=== PATIENT | female | born 1945 | race Caucasian/White ===

== ENCOUNTER → 2020-02-12 11:26 | Outpatient (CLI) | payer MEDICARE, BC, SELFPAY ==
--- NOTE | 2020-02-12 | DI.RAD.S_ITS ---
PROCEDURE: XR LUMBAR SPINE 2-3V INDICATIONS: LOW BACK AND LEFT LEG PAIN TECHNIQUE: 3 views of the lumbar spine were acquired. COMPARISON: None. FINDINGS: Bones: 5 [id number] vertebrae are present. There is prominent leftward scoliotic curvature it apex at L2. Multilevel moderate to severe disc space narrowing is present throughout the lumbar spine most severe at L5-S1. Severe foraminal narrowing is noted at L5-S1, [id number] at L2-3 and L4-5. No vertebral body compression fractures. No suspicious bony lesions. Bridging anterior osteophytes are present at L5-S1. Soft tissues: Overlying bowel gas pattern is normal. No suspicious soft tissue calcifications. IMPRESSION: Degenerative changes as above most notable at L5-S1. Leftward scoliotic curvature is present. Dictated by: Mindi Bell M.D. on 02/12/2020 at 16:19 Approved by: Mindi Bell M.D. on 02/12/2020 at 16:20
== END ==
PROVIDERS: Referring Provider Chiropractor; Visit Provider Chiropractor
DX: M54.5 Low back pain (principal); M79.605 Pain in left leg; M47.817 Spondylosis without myelopathy or radiculopathy, lumbosacral region
CPT/HCPCS: 72100

== ENCOUNTER 2020-06-29 13:28 | Observation (INO) | payer MEDICARE, BC, SELFPAY ==
[2020-06-29] VITALS (9 sets, daily range): BP systolic 118–193; BP diastolic 63–89; PULSE 61–85; RESP 16–25; TEMP 36.3–37.3; O2SAT 94–95; BMI 26.6
--- NOTE | 2020-06-29 13:41 | DI.RAD.S_ITS ---
PROCEDURE: XR CHEST 1V INDICATIONS: vomiting blood TECHNIQUE: One view of the chest was acquired. COMPARISON: None. FINDINGS: Overlying EKG wires. Surgical changes and devices: None. Lungs and pleura: Linear densities at the right greater than left lung bases. No focal consolidation, pneumothorax, or pleural effusion. Mediastinum: Mediastinal contours appear normal. Heart size is normal. Bones and chest wall: No suspicious bony lesions. Dextroscoliotic curvature of the lower thoracic spine. Overlying soft tissues appear unremarkable. IMPRESSION: Linear densities at the right greater than left lung bases favoring atelectasis/scarring. Developing consolidation versus sequela of aspiration not completely excluded. Dictated by: Hemant Garcia D.O. on 06/29/2020 at 13:21 Approved by: Hemant Garcia D.O. on 06/29/2020 at 13:27
--- NOTE | 2020-06-29 13:49 | ED.GIBLEED ---
HPI - GI Bleed General Chief complaint: GI Bleed Stated complaint: vomiting blood Time Seen by Provider: 06/29/20 13:41 Source: patient Mode of arrival: Ambulatory Limitations: no limitations History of Present Illness HPI Narrative: Patient is a 75-year-old female. Does have a history of reflux disease. Ten years ago had an upper endoscopy but nothing since then. She has had a colonoscopy approximately 5 years ago. She does take omeprazole on a daily basis however she stopped taking that over the past couple days because she was started on an antibiotic for an ear infection in the instructions stated that she should stop omeprazole because of this antibiotic. She has noticed over the past day or so that she has had ?severe heartburn ?she did take some Tums at home without any improvement. She has not noticed any change in her stool. No abdominal tenderness. No fevers. Last evening she did vomit some dark colored substance. Today after eating she vomited which she states was bright red blood and then food followed again by bright red blood. She does not take aspirin secondary to an allergy. She denies alcohol use. Does not take anti-inflammatories. Related Data Home Medications Medication Instructions Recorded Confirmed acetaminophen 500 mg tablet 500 mg PO Q4H PRN 03/20/19 06/24/20 carvedilol 3.125 mg tablet 3.125 mg PO BID 03/20/19 06/24/20 levothyroxine 75 mcg capsule 75 mcg PO DAILY 03/20/19 06/24/20 loratadine 10 mg tablet 10 mg PO DAILY 03/20/19 06/24/20 ranitidine HCl 150 mg capsule 150 mg PO BID 03/20/19 06/24/20 spironolactone 25 mg tablet 25 mg PO BID 03/20/19 06/24/20 Previous Rx's Medication Instructions Recorded clobetasol 0.05 % topical ointment 1 applictn TOP DAILY #1 tube 03/20/19 COMP estradiol vaginal cream See Rx Instructions .ROUTE 03/21/19 .COMPLEX #30 gram cefuroxime axetil 250 mg tablet 250 mg PO BID 10 Days #20 tab 06/24/20 [id number]-bplwttkha 3.5 4 drp OTIC (EAR) QID 7 Days #10 ml 06/24/20 mg/mL-10,000 unit/mL-1 % ear solution Allergies Allergy/AdvReac Type Severity Reaction Status Date / Time cefuroxime Allergy Severe Gastrointestinal Verified 06/29/20 15:07 Upset aspirin Allergy Face/Lips Verified 06/29/20 13:52 swell Penicillins AdvReac Intermediate Itching Verified 06/29/20 15:07 Review of Systems Constitutional Constitutional: Denies fever(s) and Denies headache(s) ENT Ears, Nose, Mouth, and Throat: Denies headache(s) Cardiovascular Cardiovascular: Denies chest pain and Denies dyspnea Respiratory Respiratory: Denies cough and Denies dyspnea Gastrointestinal Gastrointestinal: Denies abdominal pain, Denies melena, Denies hematochezia, Denies change in bowel habits, Reports coffee ground emesis, Reports nausea and Reports vomiting Genitourinary Genitourinary: Denies dysuria Genitourinary: Denies dysuria Musculoskeletal Musculoskeletal: Denies arthralgias and Denies myalgias Integumentary/Breasts Skin/Breast: Denies lesions and Denies rash Neurologic Neurologic: Denies behavioral changes and Denies headache(s) Psychiatric Psychiatric: Denies behavioral changes Hematologic/Lymphatic On Anticoagulants: No Allergic/Immunologic Allergic/Immunologic: Denies urticaria Patient History Medical History Chicken pox Chronic back pain Fractures (~2018) GERD (gastroesophageal reflux disease) Hypertension Hypothyroidism Measles Mumps Scoliosis Shoulder pain (~2018) Vertigo Social History Smoking Status: Former smoker Smoking Status: Former smoker Exam Initial Vital Signs Initial Vital Signs: Vital Signs Temperature 97.9 F 06/29/20 13:35 Pulse Rate 85 06/29/20 13:35 Respiratory Rate 22 06/29/20 13:35 Blood Pressure 193/89 H 06/29/20 13:35 Pulse Oximetry 94 06/29/20 13:35 Const General: cooperative, comfortable, well developed and well groomed Limitations: mental status not altered HENID Head: normal to inspection and normocephalic Resp Effort & Inspection: normal respiratory effort Auscultation: clear to auscultation bilaterally Cardio Rate: regular rate Rhythm: regular rhythm GI Inspection: non-distended Palpation: No firm and No tender Skin Lesions: no lesions Rashes: no rashes Neuro General: patient alert and patient awake Cognition: normal cognition Speech: speech normal Extrem General: normal to inspection and capillary refill normal Psych Appearance: grossly normal and well kempt Scores GCS Leisenring coma scale eye opening: Spontaneous Leisenring coma scale verbal response: Orientated Jarrett coma scale motor response: Obey commands Jarrett coma scale total score: 15 Course Orders Ordered: ED Orders 06/29/20 13:34 EKG-12 Lead Stat 06/29/20 13:41 XR chest 1V Stat 06/29/20 13:45 Complete Blood Count AUTO DIFF Stat Comprehensive Metabolic Panel Stat Partial Thromboplastin Time Stat Prothrombin Time INR Stat Type and Screen Stat 06/29/20 14:56 COVID19 Stat 06/29/20 14:57 Consult to General Surgery Stat Pantoprazole Sodium 80 mg/ (Sodium Chloride) 100 mls @ 10 mls/hr IV CONT ZOFIA Last Admin: 06/29/20 14:13 Dose: 8 mg/hr, 10 mls/hr Documented by: BTONER Discontinued Medications Pantoprazole Sodium (Pantoprazole 40 Mg Vial) 80 mg IV NOW ONE Stop: 06/29/20 13:50 Last Admin: 06/29/20 14:07 Dose: 80 mg Documented by: BTONER Vital Signs Vital signs: Vital Signs - 8 hr 06/29/20 13:35 Temperature 97.9 F Pulse Rate 85 Respiratory Rate 22 Blood Pressure 193/89 H Pulse Oximetry 94 MDM - GI Bleed Medical Records Attestation: I reviewed the patient's medical records. Lab Data Attestation: I reviewed the patient's lab results. Result diagrams: 06/29/20 13:45 06/29/20 13:45 Labs: Lab Results 06/29/20 06/29/20 06/29/20 Range/Units 13:45 13:45 13:45 WBC 9.0 (4.5-11.0) X10^3/uL RBC 4.68 (4.0-5.2) X10^6/uL Hgb 13.8 (12.0-16.0) g/dL Hct 41.5 (36-46) % MCV 88.7 (80-100) fL MCH 29.4 (26-34) PG MCHC 33.1 (30-36) % RDW 13.3 (11.6-14.8) % Plt Count 288 (150-400) X10^3/uL Neut % (Auto) 75.2 H (50-75) % Lymph % (Auto) 14.5 L (25-40) % [place] % (Auto) 7.3 (3-14) % Eos % (Auto) 2.1 (2-4) % Baso % (Auto) 0.9 (0-2) % Neut # (Auto) 6800 (7561-6295) /uL Lymph # (Auto) 1300 (3384-1310) /uL [place] # (Auto) 700 (0-900) /uL Eos # (Auto) 200 (0-450) /uL Baso # (Auto) 100 (0-100) /uL PT 12.6 (10.1-12.7) SECONDS INR 1.1 (0.9-1.3) APTT 34 (26.4-36.2) SECONDS Sodium 137 (137-145) mmol/L Potassium 4.4 (3.4-5.1) mmol/L Chloride 102 (98-107) mmol/L Carbon Dioxide 29 (22-32) mmol/L BUN 22 H (7-17) mg/dL Creatinine 1.12 H (0.52-1.04) mg/dL Estimated GFR 47.6 L (>60) mL/min BUN/Creatinine Ratio 19.6 (6-22) Glucose 111 H (80-110) mg/dL Calcium 10.4 H (8.4-10.2) mg/dL Total Bilirubin 0.3 (0.2-1.3) mg/dL AST 26 (14-36) IU/L ALT 19 (<35) IU/L Alkaline Phosphatase 91 (38-126) U/L Total Protein 7.5 (6.3-8.2) g/dL Albumin 4.3 (3.5-5.0) g/dL Globulin 3.2 (1.7-4.1) g/dL Albumin/Globulin Ratio 1.3 (1.0-2.8) Blood Type Antibody Screen 06/29/20 Range/Units 13:45 WBC (4.5-11.0) X10^3/uL RBC (4.0-5.2) X10^6/uL Hgb (12.0-16.0) g/dL Hct (36-46) % MCV (80-100) fL MCH (26-34) PG MCHC (30-36) % RDW (11.6-14.8) % Plt Count (150-400) X10^3/uL Neut % (Auto) (50-75) % Lymph % (Auto) (25-40) % [place] % (Auto) (3-14) % Eos % (Auto) (2-4) % Baso % (Auto) (0-2) % Neut # (Auto) (9348-2286) /uL Lymph # (Auto) (7671-8021) /uL [place] # (Auto) (0-900) /uL Eos # (Auto) (0-450) /uL Baso # (Auto) (0-100) /uL PT (10.1-12.7) SECONDS INR (0.9-1.3) APTT (26.4-36.2) SECONDS Sodium (137-145) mmol/L Potassium (3.4-5.1) mmol/L Chloride (98-107) mmol/L Carbon Dioxide (22-32) mmol/L BUN (7-17) mg/dL Creatinine (0.52-1.04) mg/dL Estimated GFR (>60) mL/min BUN/Creatinine Ratio (6-22) Glucose (80-110) mg/dL Calcium (8.4-10.2) mg/dL Total Bilirubin (0.2-1.3) mg/dL AST (14-36) IU/L ALT (<35) IU/L Alkaline Phosphatase (38-126) U/L Total Protein (6.3-8.2) g/dL Albumin (3.5-5.0) g/dL Globulin (1.7-4.1) g/dL Albumin/Globulin Ratio (1.0-2.8) Blood Type O Positive Antibody Screen Negative Urine Dip Bedside Urine Glucose Negative Bedside Urine Bilirubin - Negative Bedside Urine Ketone - Negative Urine Specific [place] 1.015 Bedside Urine Occult Blood - Negative Bedside Urine pH 7.5 Bedside Urine Protein - Negative Bedside Urine Urobilinogen - Negative Bedside Urine Nitrite - Negative Bedside Urine Leukocytes - Negative Esterase Imaging Data Chest x-ray: Radiologist's Impression: [address] [id number] ReportSigned Patient: Clarice Yo PMR#: [id number]: 6Acct:[id number]/Sex: 75 / FDate of Service: 06/29/20Loc: EDAccession Number: [id number] Procedure: XR chest 1V Ordering Provider: Walter Xie D.O. PROCEDURE: XR CHEST 1V INDICATIONS: vomiting blood TECHNIQUE: One view of the chest was acquired. COMPARISON: None. FINDINGS: Overlying EKG wires. Surgical changes and devices: None. Lungs and pleura: Linear densities at the right greater than left lung bases. No focal consolidation, pneumothorax, or pleural effusion. Mediastinum: Mediastinal contours appear normal. Heart size is normal. Bones and chest wall: No suspicious bony lesions. Dextroscoliotic curvature of the lower thoracic spine. Overlying soft tissues appear unremarkable. IMPRESSION: Linear densities at the right greater than left lung bases favoring atelectasis/scarring. Developing consolidation versus sequela of aspiration not completely excluded. Dictated by: Hemant Garcia D.O. on 06/29/2020 at 13:21 Approved by: Hemant Garcia D.O. on 06/29/2020 at 13:27 MDM Narrative Medical decision making narrative: Patient is stable. Not hypotensive. Slightly tachypneic and not tachycardic. H&H is unremarkable. Does not have an elevated white count. Does have an elevated BUN. This does give her a score of 2 on the Leisenring-Blatchford bleeding score which makes her ?high risk? unlikely to require medical intervention. Discussed the case with Dr. Bah with General surgery who requests the patient be admitted to the medicine service and that he would scope her tomorrow. I did discuss the case with Dr. Galarza with Internal Medicine who will admit for further evaluation and treatment. Discussed the admission with the patient. She expressed understanding and agreement. Discharge Plan Departure Patient Disposition: Admitted As Inpatient Clinical Impression: Acute upper GI bleed, Hypertension Admit Date/Time: 06/29/20 15:01 Admit Provider: Marianne Galarza
[2020-06-29 13:57] LABS: Add Manual Diff / Slide Review NO; Basophils Absolute Auto 100 /uL (0-100); Basophils Percent Auto 0.9 % (0-2); Eosinophils Absolute Auto 200 /uL (0-450); Eosinophils Percent Auto 2.1 % (2-4); Hematocrit 41.5 % (36-46); Hemoglobin 13.8 g/dL (12.0-16.0); Lymphocytes Absolute Auto 1300 /uL (1100-4500); Lymphocytes Percent Auto 14.5 % (25-40); Mean Corpuscular HGB Conc 33.1 % (30-36); Mean Corpuscular Hemoglobin 29.4 PG (26-34); Mean Corpuscular Volume 88.7 fL (80-100); Monocytes Absolute Auto 700 /uL (0-900); Monocytes Percent Auto 7.3 % (3-14); Neutrophils Absolute Auto 6800 /uL (1500-7000); Neutrophils Percent Auto 75.2 % (50-75); Platelet Count 288 X10^3/uL (150-400); Red Blood Cell Count 4.68 X10^6/uL (4.0-5.2); Red Cell Distribution Width 13.3 % (11.6-14.8)
[2020-06-29 14:04] LABS: INR 1.1 (0.9-1.3); Prothrombin Time 12.6 SECONDS (10.1-12.7)
[2020-06-29 14:07] LABS: PTT Partial Thromboplastin Tim 34 SECONDS (26.4-36.2)
[2020-06-29] MEDS: PANTOPRAZOLE 40 MG VIAL 80 MG IV (14:07)
[2020-06-29 14:08] LABS: Alanine Aminotransferase 19 IU/L (<35); Albumin 4.3 g/dL (3.5-5.0); Albumin Globulin Ratio 1.3 (1.0-2.8); Alkaline Phosphatase 91 U/L (38-126); Aspartate Aminotransferase 26 IU/L (14-36); BUN Creatinine Ratio 19.6 (6-22); Bilirubin Total 0.3 mg/dL (0.2-1.3); Blood Urea Nitrogen 22 mg/dL (7-17); Calcium 10.4 mg/dL (8.4-10.2); Carbon Dioxide 29 mmol/L (22-32); Chloride 102 mmol/L (98-107); Estimated Glomerular Filt Rate 47.6 mL/min (>60); Globulin 3.2 g/dL (1.7-4.1); Glucose 111 mg/dL (80-110); HEMOLYSIS < 15 (0-50); Potassium 4.4 mmol/L (3.4-5.1); Sodium 137 mmol/L (137-145); Total Protein 7.5 g/dL (6.3-8.2)
[2020-06-29] MEDS: PANTOPRAZOLE 80 MG in SODIUM CHLORIDE 0.9% 100 ML 10 ML IV (14:13)
--- NOTE | 2020-06-29 15:13 | PC.NURSE ---
Dr Bah at bedside for consultation
--- NOTE | 2020-06-29 15:21 | P.CONS_ITS ---
History of Present Illness Consult details Date Patient Seen: 06/29/20 Time Patient Seen: 15:21 Chief complaint: vomiting blood Reason for consult: Hematemesis Requesting provider: Walter Xie Narrative: [facility] 75[facility]. She has eczema urinary ear and scratched it and developed an infection. She was placed on cefuroxime and antibiotic drops for her here. The package insert recommended that she stop her reflux medication, which she did. Unfortunately she yesterday she developed nausea with vomiting and initially vomited coffee-ground material. This morning there was also bright red blood and she came to the emergency room and is being admitted for evaluation. She just had some queasy sick feeling in her abdomen, mostly her upper abdomen since this began. She last ate this morning. She has never had anything like this before. She has had no prior abdominal operations. She has had an EGD about 10 years ago related to reflux. She has been on acid suppression medication for a prolonged period. She is not on any anticoagulated and does not take nonsteroidal anti-inflammatory agents as she is quite allergic to aspirin. No family history of GI tract malignancy. No black or bloody bowel movements. Meds Home Medications and Allergies Home Medications Medication Instructions Recorded Confirmed Type acetaminophen 500 mg tablet 1,000 mg PO PRN PRN MDD 4000 03/20/19 06/29/20 History carvedilol 3.125 mg tablet 3.125 mg PO BID 03/20/19 06/29/20 History clobetasol 0.05 % topical ointment 1 applictn TOP DAILY #1 tube 03/20/19 06/24/20 Rx levothyroxine 75 mcg capsule 75 mcg PO DAILY 03/20/19 06/29/20 History loratadine 10 mg tablet 10 mg PO DAILY 03/20/19 06/29/20 History ranitidine HCl 150 mg capsule 150 mg PO BID 03/20/19 06/24/20 History spironolactone 25 mg tablet 25 mg PO BID 03/20/19 06/29/20 History COMP estradiol vaginal cream See Rx Instructions .ROUTE 03/21/19 06/24/20 Rx .COMPLEX #30 gram cefuroxime axetil 250 mg tablet 250 mg PO BID 10 Days #20 tab 06/24/20 06/29/20 Rx [id number] 3.5 4 drp OTIC (EAR) QID 7 Days #10 ml 06/24/20 06/24/20 Rx mg/mL-10,000 unit/mL-1 % ear solution Allergies Allergy/AdvReac Type Severity Reaction Status Date / Time cefuroxime Allergy Severe Gastrointestinal Verified 06/29/20 15:07 Upset aspirin Allergy Face/Lips Verified 06/29/20 13:52 swell Penicillins AdvReac Intermediate Itching Verified 06/29/20 15:07 Review of Systems Review of Systems Narrative: Patient wears glasses. No other visual difficulties like double vision. No pain arise hearing difficulties, sore throat, tooth aches, swallowing difficulties. No cough cold or asthma. No history of COVID infection. No chest pain or heart problems though she does have hypertension. No black or bloody bowel movements. Last colonoscopy about 5 years ago. She thinks she may have had a tiny polyp removed sometime in the past. No dysuria or hematuria. No unusual bruising or bleeding. No anxiety or depression. She is hypothyroid on medication. She is not diabetic. No seizures or blackouts. She is up-to-date on her mammograms and has not had a breast biopsy. No breast discharge. Exam Vital Signs (past 8 hours): - 06/29/20 13:35 Temperature 97.9 F Pulse Rate 85 Respiratory Rate 22 Blood Pressure 193/89 H Pulse Oximetry 94 Oxygen Delivery Method Room Air Narrative Exam Narrative: Cooperative in no apparent distress. Eyes are nonicteric. Neck is supple. There are no nodes in the neck or supraclavicular areas. Trachea is midline mobile. I do not feel any thyroid enlargement. There is no bruit in the neck. Lungs are clear to auscultation without rales or rhonchi. Heart regular rate and rhythm without murmur gallop. Abdomen is protuberant soft. No scars or hernias noted. Liver and spleen are not palpably enlarged. Visible skin is without ulceration or lesion. She has 2+ dorsalis pedis pulses. Patient is alert and oriented x3. Speech rate and content are appropriate. Affect is appropriate. Objective Labs Result Diagrams: 06/29/20 13:45 06/29/20 13:45 Labs: Laboratory Results - last 24 hr 06/29/20 06/29/20 06/29/20 13:45 13:45 13:45 WBC 9.0 RBC 4.68 Hgb 13.8 Hct 41.5 MCV 88.7 MCH 29.4 MCHC 33.1 RDW 13.3 Plt Count 288 Neut % (Auto) 75.2 H Lymph % (Auto) 14.5 L [place] % (Auto) 7.3 Eos % (Auto) 2.1 Baso % (Auto) 0.9 Neut # (Auto) 6800 Lymph # (Auto) 1300 [place] # (Auto) 700 Eos # (Auto) 200 Baso # (Auto) 100 PT 12.6 INR 1.1 APTT 34 Sodium 137 Potassium 4.4 Chloride 102 Carbon Dioxide 29 BUN 22 H Creatinine 1.12 H Estimated GFR 47.6 L BUN/Creatinine Ratio 19.6 Glucose 111 H Calcium 10.4 H Total Bilirubin 0.3 AST 26 ALT 19 Alkaline Phosphatase 91 Total Protein 7.5 Albumin 4.3 Globulin 3.2 Albumin/Globulin Ratio 1.3 Blood Type Antibody Screen 06/29/20 13:45 WBC RBC Hgb Hct MCV MCH MCHC RDW Plt Count Neut % (Auto) Lymph % (Auto) [place] % (Auto) Eos % (Auto) Baso % (Auto) Neut # (Auto) Lymph # (Auto) [place] # (Auto) Eos # (Auto) Baso # (Auto) PT INR APTT Sodium Potassium Chloride Carbon Dioxide BUN Creatinine Estimated GFR BUN/Creatinine Ratio Glucose Calcium Total Bilirubin AST ALT Alkaline Phosphatase Total Protein Albumin Globulin Albumin/Globulin Ratio Blood Type O Positive Antibody Screen Negative Assessment & Plan Assessment & Plan narrative: Patient with chronic reflux disease, hypertension, ear eczema, hypothyroidism,(all conditions chronic and medically treated) who developed coffee-ground emesis yesterday with some bright red blood emesis today. Patient ate today and I would like to wait therefore till tomorrow to do an EGD. I have discussed the procedure and the potential for general anesthesia verses sedation. Risks of bleeding, aspiration and perforation discussed with her. Her was present. All questions were answered. They wished to proceed. In the interim we will follow her crit its intransit fuse as appropriate. 35 minutes was spent reviewing her information and performing a history and physical. An additional 10 minutes was used to document.
[2020-06-29 15:36] LABS: COVID19 -Nasal RAPID Negative (Negative)
--- NOTE | 2020-06-29 16:36 | P.HP_ITS ---
History of Present Illness History of Present Illness Date Patient Seen: 06/29/20 Time Patient Seen: 16:00 Date of Onset of Symptoms: 06/29/20 Chief complaint: vomiting blood Narrative: She is a 75-year-old female with past medical history of gastroesophageal reflux disease, hypertension, hypothyroidism presenting with acute onset hematochezia. On June 25 she presented to urgent care for left ear pain and was given cefuroxime for presumed otitis media. She read online that she was to stop taking her omeprazole while taking cefuroxime and therefore stopped. This a.m. 0300 she woke up and started vomiting black coffee-ground emesis. This persisted for several hours until she began vomiting bright red blood at 12:00 p.m.. She denies that this has ever happened before. She says that she has been on ranitidine for years and recently switched to omeprazole which she takes daily for chronic reflux. She says that she frequently has reflux into her throat and feels nauseated. In the ED she complains of pain in her throat. She denies chest pain, palpitations, shortness of breath, diarrhea, indigestion, melena. Endorses cough, hematochezia, nausea. Pantoprazole 80 mg IV started in ED. CXR performed on admission shows linear densities in lung bases suggestive of atelectasis vs scarring though unable to exclude consolidation 2/[address] Bah from surgery met with the patient in the ED and plans to scope tomorrow. She moved to [place] 3 years ago from [place] for a business opportunity with her . She does not currently have a PCP in the area, and says that she goes to [place] yearly and has a doctor's appointment who refilled her medications at the times. Patient History Medical History Chicken pox Chronic back pain Fractures (~2018) GERD (gastroesophageal reflux disease) Hypertension Hypothyroidism Measles Mumps Scoliosis Shoulder pain (~2018) Vertigo Family & Social History Family History (Updated 06/29/20 @ 16:44 by Marianne Galarza MD) Father Cancer Brother Cancer Sister Cancer Tobacco & Substance use: Smoking Status Former smoker Meds Home Medications and Allergies Home Medications Medication Instructions Recorded Confirmed Type acetaminophen 500 mg tablet 1,000 mg PO PRN PRN MDD 4000 03/20/19 06/29/20 History carvedilol 3.125 mg tablet 3.125 mg PO BID 03/20/19 06/29/20 History clobetasol 0.05 % topical ointment 1 applictn TOP DAILY #1 tube 03/20/19 06/29/20 Rx levothyroxine 75 mcg capsule 75 mcg PO DAILY 03/20/19 06/29/20 History loratadine 10 mg tablet 10 mg PO DAILY 03/20/19 06/29/20 History spironolactone 25 mg tablet 25 mg PO BID 03/20/19 06/29/20 History COMP estradiol vaginal cream See Rx Instructions .ROUTE 03/21/19 06/29/20 Rx .COMPLEX #30 gram cefuroxime axetil 250 mg tablet 250 mg PO BID 10 Days #20 tab 06/24/20 06/29/20 Rx tczcjxen-tjlxetcre-nuabpeyfr 3.5 4 drp OTIC (EAR) QID 7 Days #10 ml 06/24/20 06/29/20 Rx mg/mL-10,000 unit/mL-1 % ear solution magnesium salicylate [Jonathan's mg 06/29/20 History Regular] omeprazole PO 06/29/20 History Allergies Allergy/AdvReac Type Severity Reaction Status Date / Time aspirin Allergy Face/Lips Verified 06/29/20 13:52 swell cefuroxime AdvReac Severe Gastrointestinal Verified 06/29/20 15:56 Upset Penicillins AdvReac Intermediate Itching Verified 06/29/20 15:07 Review of Systems Constitutional Constitutional: Reports as per HPI ENT Ears, Nose, Mouth, and Throat: Yes as per HPI, No dysphagia, Yes ear discharge (L ear white drainage. ), Yes otalgia (L ear ), No odynophagia, No throat swelling and No tongue swelling Cardiovascular Cardiovascular: Reports as per HPI Respiratory Respiratory: Reports as per HPI Gastrointestinal Gastrointestinal: Reports as per HPI, Denies abdominal pain, Denies belching, Denies melena, Denies hematochezia, Denies change in bowel habits, Reports coffee ground emesis, Denies constipation, Denies cramping, Denies dysphagia, Denies excessive flatus, Denies odynophagia, Reports vomiting and Reports hematemesis Musculoskeletal Musculoskeletal: Reports as per HPI and Reports system reviewed and no additional complaints, except as documented Integumentary/Breasts Skin/Breast: Reports system reviewed and no additional complaints, except as doc umented Neurologic Neurologic: Reports system reviewed and no additional complaints, except as documented Psychiatric Psychiatric: Reports system reviewed and no additional complaints, except as documented Endocrine Endocrine: Reports system reviewed and no additional complaints, except as documented Hematologic/Lymphatic Hematologic/Lymphatic: Reports system reviewed and no additional complaints, except as documented Allergic/Immunologic Allergic/Immunologic: Reports system reviewed and no additional complaints, except as documented, Denies throat swelling and Denies tongue swelling Exam Vital Signs (past 8 hours): - 06/29/20 13:35 06/29/20 15:32 06/29/20 16:00 Temperature 97.9 F Pulse Rate 85 66 63 Respiratory Rate 22 22 25 H Blood Pressure 193/89 H 170/76 H Pulse Oximetry 94 94 94 06/29/20 16:01 06/29/20 16:30 Temperature Pulse Rate 63 64 Respiratory Rate 18 18 Blood Pressure 144/63 H Pulse Oximetry 94 95 Oxygen Delivery Method Room Air Const General: cooperative, healthy appearing, comfortable and well groomed Nutritional Appearance: well nourished and obese Orientation: alert, awake, oriented x3, oriented to person, oriented to place and oriented to time HENNC Head: normal to inspection, normocephalic and atraumatic Ears: external ears normal, TM normal on the right and TM abnormal (White discharge in L ear canal, difficult to visualize TM) Throat: posterior oropharynx normal, tonsils normal and uvula midline Neck Neck: normal visual inspection, full ROM and no meningeal signs Chest Chest: normal inspection of the chest Resp Effort & Inspection: normal respiratory effort Auscultation: clear to auscultation bilaterally Cardio Rate: regular rate Rhythm: regular rhythm Heart Sounds: S1 normal and S2 normal GI Inspection: normal to inspection, no abdominal wall ecchymosis and no edema Palpation: soft Auscultation: normal bowel sounds Psych Appearance: grossly normal and well kempt Affect: normal affect Attitude: cooperative Thought Process: normal Objective Labs Result Diagrams: 06/29/20 18:00 06/29/20 13:45 Labs: Laboratory Results - last 24 hr 06/29/20 06/29/20 06/29/20 13:45 13:45 13:45 WBC 9.0 RBC 4.68 Hgb 13.8 Hct 41.5 MCV 88.7 MCH 29.4 MCHC 33.1 RDW 13.3 Plt Count 288 Neut % (Auto) 75.2 H Lymph % (Auto) 14.5 L Wharton % (Auto) 7.3 Eos % (Auto) 2.1 Baso % (Auto) 0.9 Neut # (Auto) 6800 Lymph # (Auto) 1300 Wharton # (Auto) 700 Eos # (Auto) 200 Baso # (Auto) 100 PT 12.6 INR 1.1 APTT 34 Sodium 137 Potassium 4.4 Chloride 102 Carbon Dioxide 29 BUN 22 H Creatinine 1.12 H Estimated GFR 47.6 L BUN/Creatinine Ratio 19.6 Glucose 111 H Calcium 10.4 H Total Bilirubin 0.3 AST 26 ALT 19 Alkaline Phosphatase 91 Total Protein 7.5 Albumin 4.3 Globulin 3.2 Albumin/Globulin Ratio 1.3 SARS-CoV-2 (PCR) Blood Type Antibody Screen 06/29/20 06/29/20 13:45 15:10 WBC RBC Hgb Hct MCV MCH MCHC RDW Plt Count Neut % (Auto) Lymph % (Auto) Wharton % (Auto) Eos % (Auto) Baso % (Auto) Neut # (Auto) Lymph # (Auto) Wharton # (Auto) Eos # (Auto) Baso # (Auto) PT INR APTT Sodium Potassium Chloride Carbon Dioxide BUN Creatinine Estimated GFR BUN/Creatinine Ratio Glucose Calcium Total Bilirubin AST ALT Alkaline Phosphatase Total Protein Albumin Globulin Albumin/Globulin Ratio SARS-CoV-2 (PCR) Negative Blood Type O Positive Antibody Screen Negative Assessment & Plan Assessment & Plan narrative: Clarice Yo is a 75-year-old female with past medical history of gastroesophageal reflux disease, hypertension, hypothyroidism presenting with acute onset hematochezia. 1. Acute upper GI bleed, present on admission, active. - Patient has had multiple episodes of hematochezia this AM. - H/H (13.4/40.7) remain normal despite blood loss. - Patient denies taking Aspirin or NSAIDS. - Surgery consulted in ED. Dr. Bah met with patient in ED and will perform EGD tomorrow morning. - NPO at midnight except for medications. - Frequent CBC/BMP. - Patient started on telemetry. -Continue Pantoprazole 40mg BID, IV. 2. Bilateral pulmonary infiltrates, present on admission, active. - CXR performed on admission showed linear densities in the right greater than left lung base suggestive of atelectasis versus scarring. However consolidation from aspiration could not be excluded. -patient is afebrile, has a WBC of 9.0, no left shift, and normal pulmonary physical exam. -This is unlikely to be acute in nature, but will monitor 3. Acute kidney injury, present on admission, active. - Creatinine 1.12 on admission, no baseline available. - PEARL likely secondary to prerenal azotemia - Continue IVF NS 0.9% @ 100ml/hr. 4. Otitis media of L ear, present on admission, active. -patient was seen by urgent care on June 25 for L unilateral ear pain. Per urgent care note, she has eczema with otitis externa from chronic irritation from use of Q-tips and findings suggestive of acute otitis media. Patient was given cefuroxime 250 mg p.o. b.i.d. for 10 days since she is allergic to penicillin. -patient presents today with continued findings of white drainage (likely topical hydrocortisone residue) from her left ear, and erythematous TM. 5. Gastroesophageal reflux disease, present on admission, chronic. -patient on chronic proton pump inhibitor therapy for chronic reflux esophagitis. -Protonix 80 mg IV ordered in ED, will continue Protonix 40 mg IV b.i.d. 6.Hypothyroidism, present on admission, chronic. - Patient managed with Levothyroxine 75mcg po QD. 7. Essential hypertension, present on admission, chronic. - History of essential hypertension, managed with carvedilol 3.125 po BID, spironolactone 25mg po BID.
[2020-06-29] MEDS: SODIUM CHLORIDE 0.9% 1,000 ML 100 ML IV (16:57)
[2020-06-29] MEDS: NEOMY/POLYM B/HC OTIC 10 ML 4 DROPS EAR-BOTH ×2 (16:59→20:25)
[2020-06-29 18:11] LABS: Add Manual Diff / Slide Review NO; Basophils Absolute Auto 100 /uL (0-100); Basophils Percent Auto 1.1 % (0-2); Eosinophils Absolute Auto 200 /uL (0-450); Eosinophils Percent Auto 2.5 % (2-4); Hematocrit 40.7 % (36-46); Hemoglobin 13.4 g/dL (12.0-16.0); Lymphocytes Absolute Auto 1700 /uL (1100-4500); Lymphocytes Percent Auto 20.7 % (25-40); Mean Corpuscular Hemoglobin 29.3 PG (26-34); Monocytes Absolute Auto 500 /uL (0-900); Monocytes Percent Auto 6.5 % (3-14); Neutrophils Absolute Auto 5700 /uL (1500-7000); Neutrophils Percent Auto 69.2 % (50-75); Platelet Count 251 X10^3/uL (150-400); Red Blood Cell Count 4.57 X10^6/uL (4.0-5.2); Red Cell Distribution Width 13.4 % (11.6-14.8); White Blood Cell Count 8.3 X10^3/uL (4.5-11.0)
[2020-06-29] MEDS: cefUROXime 250 MG TABLET PO (20:25)
[2020-06-29] MEDS: PANTOPRAZOLE 40 MG VIAL IV (20:25)
[2020-06-29] MEDS: carvediloL 3.125 MG TABLET PO (20:25)
[2020-06-29] MEDS: SPIRONOLACTONE 25 MG TABLET PO (20:25)
--- NOTE | 2020-06-29 22:28 | PC.NURSE ---
Admission note: Patient arrived on via wheelchair accompanied by ED MANAGER CLINICAL APPLICATIONS @ 2371, transferred herself to inpatient bed and ambulated to bathroom without difficulty. No hx of falls or assistive devices at baseline. Hx of long standing reflux and reports that her episodes of emesis are just after feelings of heartburn and not specifically nausea. Has not had either since admission to the floor. All fall risk and safety education given, call light in reach, calls appropriately. AxOx3, can make needs known.
[2020-06-30] VITALS (11 sets, daily range): BP systolic 131–153; BP diastolic 57–96; PULSE 59–70; RESP 11–16; TEMP 35.9–36.6; O2SAT 91–97; BMI 26.6
--- NOTE | 2020-06-30 | PATH_ITS ---
[facility] Accession Number: [id number] . 01 Material submitted: . esophagus - ESOPHAGEAL ULCER . 01 Clinical history: . VOMITING BLOOD . 02 Diagnosis: Esophageal Ulcer, Biopsy: Scant reactive squames with fibrinopurulent debris. Negative for fungal organisms by PAS stain. Negative for viral cytopathic effect. Negive for dysplasia or malignancy, however, no well-preserved, intact tissue is present for evaluation. MRV 07/04/2020 1543 Local . 02 Electronically signed: . Kristy Ballesteros MD, Pathologist NPI- [id number] . 01 Gross description: . ESOPHAGEAL ULCER: Received in formalin is 1 fragment(s) of zhong, soft tissue measuring 0.1 x 0.1 x 0.1 cm submitted entirely in 1 cassette(s) /FAIZAN 07/01/2020 1908 Local . 02 Microscopic: . A PAS stain is performed to evaluate for fungal organisms and is negative for fungal organisms. The control stain showed appropriate reactivity. . 02 Pathologist provided ICD-10: K92.0 . 02 CPT . 082861, 606153 Performed at: 01 [facility] [address], [place], [place] [id number] MD Elias Martinez MD Phone: [phone] Performed at: 02 [facility] [address] [place], [place] [id number] MD Manuela Ceja MD Phone: [phone]
[2020-06-30] MEDS: SODIUM CHLORIDE 0.9% 1,000 ML 100 ML IV (02:47)
[2020-06-30] MEDS: LEVOTHYROXINE 75 MCG TABLET PO (05:09)
[2020-06-30 06:08] LABS: Add Manual Diff / Slide Review NO; Basophils Absolute Auto 100 /uL (0-100); Eosinophils Absolute Auto 300 /uL (0-450); Eosinophils Percent Auto 4.7 % (2-4); Lymphocytes Absolute Auto 2000 /uL (1100-4500); Lymphocytes Percent Auto 33.5 % (25-40); Mean Corpuscular HGB Conc 33.3 % (30-36); Mean Corpuscular Hemoglobin 29.7 PG (26-34); Mean Corpuscular Volume 89.2 fL (80-100); Monocytes Absolute Auto 600 /uL (0-900); Monocytes Percent Auto 10.4 % (3-14); Neutrophils Absolute Auto 3100 /uL (1500-7000); Neutrophils Percent Auto 50.4 % (50-75); Platelet Count 227 X10^3/uL (150-400); Red Blood Cell Count 4.04 X10^6/uL (4.0-5.2); Red Cell Distribution Width 13.2 % (11.6-14.8); White Blood Cell Count 6.1 X10^3/uL (4.5-11.0)
[2020-06-30 06:19] LABS: Alanine Aminotransferase 14 IU/L (<35); Albumin 3.3 g/dL (3.5-5.0); Albumin Globulin Ratio 1.2 (1.0-2.8); Alkaline Phosphatase 65 U/L (38-126); Aspartate Aminotransferase 19 IU/L (14-36); BUN Creatinine Ratio 15.6 (6-22); Bilirubin Total 0.2 mg/dL (0.2-1.3); Blood Urea Nitrogen 15 mg/dL (7-17); Calcium 8.8 mg/dL (8.4-10.2); Carbon Dioxide 31 mmol/L (22-32); Chloride 106 mmol/L (98-107); Estimated Glomerular Filt Rate 56.8 mL/min (>60); Globulin 2.7 g/dL (1.7-4.1); Glucose 91 mg/dL (80-110); HEMOLYSIS < 15 (0-50); Potassium 4.1 mmol/L (3.4-5.1); Sodium 137 mmol/L (137-145)
--- NOTE | 2020-06-30 08:17 | PC.NURSE ---
Addendum entered by Yolanda Soriano R.N. 06/30/20 11:40: Patient back from EGD, alert, oriented, VSS, denies pain and nausea. Taking clear liquids. Original Note: Patient, alert, oriented denies pain and nausea. Ambulating indep in room. Remains NPO.
--- NOTE | 2020-06-30 09:03 | CM.DANOTE ---
Addendum entered by Laura Ronquillo R.N. 06/30/20 13:01: Met with patient in her room. Introduced self and role. She was laying in bed, awake. He had some nausea. Confirmed with patient that they have an RV here at [place], they leave it here, and drive back to [place]. 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 She stated that they have a home in [place] with [place] acres, and a son that lives near by. She is independent, drives. Plan is to drive back to [place] potentially next week. Will continue to follow. Original Note: DCP: Case received, EMR reviewed. , Bharat, was in the room, patient currently having a procedure. Introduced self and role. Was able to obtain some information regarding patient's baseline activity status prior to hospitalization, as well as current living situation. DCP assessment completed with information currently available. Patient is a 75 year old female who admitted yesterday morning to the care of the hospitalist team. PCP: Unknown, has a provider in [place]. Payer: confirmed: Medicare/BCBS Out of [facility]. Patient came to the hospital via private vehicle secondary to having emesis, coffee ground. Patient holds current diagnosis of acute GI Bleed. She is currently having a EGD procedure. Patient has history of acid reflux. Met with patient's in the room. Confirmed that she is independent at baseline, they live in [place], but come here to visit as well. They stay in their RV, stated, rent is too expensive. They are supposed to go back to [place] next week, for patient has an appointment to see her primary care provider, she has none in this area. P: DCP to continue to be available for any needs. Patient should be able to go home when she is medically stable. Laura Ronquillo RN/Organic Gardening Teacher
[2020-06-30] MEDS: LACTATED RINGERS 1,000 ML 42 ML IV ×2 (09:09→11:56)
--- NOTE | 2020-06-30 09:42 | PM.PREOP ---
Pre-operative Note COVID-19 COVID-19 status: Negative Result date/Date tested (Pos, Neg/Pending): 06/29/20 Interval Note History & Physical reviewed/Exam performed by Physician: Yes Changes to H&P: No
--- NOTE | 2020-06-30 10:19 | PM.OP.ENDO ---
Operative Date/Time/Diagnoses Date of procedure: 06/30/20 Time of procedure: 10:20 Pre-op diagnosis: Upper GI bleed Post-op diagnosis: same (Significant distal esophagitis with ulceration. Acute.) Procedure & Clinicians Study performed: EGD with biopsy Same procedure as scheduled: Yes Indications: Determine cause of upper GI bleed/hematemesis Surgeon: Lucas Bah Procedure Notes SCOAP/Timeout: Performed Procedure in detail: Patient is placed supine on her bed. She underwent general endotracheal anesthesia to protect her airway. Scope was inserted and advanced into the esophagus. The esophagus was normal to lay reach the distal 3 or 4 cm. There was obvious ulceration in this area inflammation. Scope was inserted beyond into the stomach which insufflated well. The patient had no blood in her upper tract. The pyloric channel was narrowed but not inflamed. The duodenum was normal to the 4th part. The scope was brought back into the stomach and retroflexed. The patient was noted to have a very small hiatal hernia. The scope was removed into the distal esophagus. I took 1 biopsy and pulled off but appeared to be an area of fibrinous exudate with minor bleeding. I chose not to biopsy any further and remove the scope. Patient tolerated the procedure well. Scope withdrawal time: Not applicable Sedation minutes: 0 (Done under general anesthesia to protect her airway should blood be in her stomach.) Findings: other findings (Acute esophageal ulceration with inflammation.) Specimen(s): other (Esophageal biopsy) Complications: none Post-procedure Plan for aftercare: Proton pump inhibitor Disposition: PACU
[2020-06-30] MEDS: NEOMY/POLYM B/HC OTIC 10 ML 4 DROPS EAR-BOTH ×2 (11:08→14:54)
[2020-06-30] MEDS: carvediloL 3.125 MG TABLET PO (11:08)
[2020-06-30] MEDS: cefUROXime 250 MG TABLET PO (11:08)
[2020-06-30] MEDS: PANTOPRAZOLE 40 MG VIAL IV (11:08)
[2020-06-30] MEDS: LORATADINE 10 MG TABLET PO (11:08)
[2020-06-30] MEDS: SPIRONOLACTONE 25 MG TABLET PO (11:08)
[2020-06-30] MEDS: SODIUM CHLORIDE 0.9% FLUSH 10 ML IV (11:09)
[2020-06-30] MEDS: ONDANSETRON 4 MG/2 ML INJ IV (11:55)
[2020-06-30] MEDS: ACETAMINOPHEN 325 MG TABLET 650 MG PO (11:55)
[2020-06-30 14:03] LABS: Hematocrit 41.3 % (36-46); Hemoglobin 13.3 g/dL (12.0-16.0)
--- NOTE | 2020-06-30 14:45 | P.DS_ITS ---
History of Present Illness History of Present Illness Date Patient Seen: 06/30/20 Time Patient Seen: 14:45 Chief complaint: vomiting blood Narrative: Per Dr. Galarza, She is a 75-year-old female with past medical history of gastroesophageal reflux disease, hypertension, hypothyroidism presenting with acute onset hematochezia. On June 25 she presented to urgent care for left ear pain and was given cefuroxime for presumed otitis media. She read online that she was to stop taking her omeprazole while taking cefuroxime and therefore stopped. This a.m. 0300 she woke up and started vomiting black coffee-ground emesis. This pers isted for several hours until she began vomiting bright red blood at 12:00 p.m.. She denies that this has ever happened before. She says that she has been on ranitidine for years and recently switched to omeprazole which she takes daily for chronic reflux. She says that she frequently has reflux into her throat and feels nauseated. In the ED she complains of pain in her throat. She denies yoav st pain, palpitations, shortness of breath, diarrhea, indigestion, melena. Endorses cough, hematochezia, nausea. Pantoprazole 80 mg IV started in ED. CXR performed on admission shows linear densities in lung bases suggestive of atelectasis vs scarring though unable to exclude consolidation 2/[address] Bah from surgery met with the patient in the ED and plans to scope tomorrow. 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 She does not currently have a PCP in the area, and says that she goes to [place] yearly and has a doctor's appointment who refilled her medications at the times. Discharge Providers Provider Date of admission: 06/29/20 15:01 Discharge Date: 06/30/20 Primary care physician: Doctor Yobani MD Discharge provider: Topher Moscoso DO Summary Hospital Course Discharge Diagnosis: 1. Acute upper GI bleed, present on admission, active. 2. Bilateral pulmonary infiltrates, present on admission, suspect chronic 3. Elevated creatinine, improved 4. Otitis media of L ear, present on admission, active. 5. Gastroesophageal reflux disease, present on admission, chronic. 6.Hypothyroidism, present on admission, chronic. 7. Essential hypertension, present on admission, chronic. Hospital Course: Clarice White is a 75-year-old female with a past medical history of GERD, hypothyroidism, hypertension who was admitted after vomiting coffee- ground material followed by otis hematemesis. She was initially treated with fluids and IV Protonix. She underwent an EGD which showed a distal esophageal ulcer and surrounding inflammation with General surgery. Her hemoglobin continue to declined to a level of 12, but then subsequently improved to 13.3. She was feeling well and tolerating clear liquids. General surgery recommended oral Protonix twice daily for a total of at least 3 months, with follow-up with her PCP in [place]. She was advised to follow a soft diet as per General surgery recommendations. Bilateral pulmonary infiltrates were seen on her admission chest x-ray, these are presumed chronic as the patient has no symptoms including cough, shortness of breath, or fever. Follow-up with her PCP is recommended. Patient's creatinine was 1.12 on admission, unknown baseline, improved to 0.96 after IV fluids. Exam Vital Signs (past 8 hours): - 06/30/20 07:22 06/30/20 09:03 06/30/20 10:15 Temperature 96.9 F L 97.1 F L 96.7 F L Pulse Rate 62 66 70 Respiratory Rate 16 16 11 L Blood Pressure 147/79 H 153/71 H 135/65 Pulse Oximetry 95 95 91 06/30/20 10:19 06/30/20 10:25 06/30/20 10:40 Temperature Pulse Rate 65 69 59 L Respiratory Rate 12 12 11 L Blood Pressure 141/67 H 134/57 L 131/60 Pulse Oximetry 94 93 94 Oxygen Delivery Method Room Air Oxygen Flow Rate 0 Narrative Exam Narrative: Const General: cooperative, healthy appearing, comfortable and well groomed Nutritional Appearance: well nourished and obese Orientation: alert, awake, oriented x3, oriented to person, oriented to place and oriented to time HENCT Head: normal to inspection, normocephalic and atraumatic Ears: external ears normal Throat: posterior oropharynx normal, tonsils normal and uvula midline Neck Neck: normal visual inspection, full ROM and no meningeal signs Chest Chest: normal inspection of the chest Resp Effort & Inspection: normal respiratory effort Auscultation: clear to auscultation bilaterally Cardio Rate: regular rate Rhythm: regular rhythm Heart Sounds: S1 normal and S2 normal GI Inspection: normal to inspection, no abdominal wall ecchymosis and no edema Palpation: soft, non-tender Auscultation: normal bowel sounds Psych Appearance: grossly normal and well kempt Affect: normal affect Attitude: cooperative Thought Process: normal Objective Labs Result Diagrams: 06/30/20 13:55 06/30/20 05:32 Labs: Laboratory Results - last 24 hr 06/29/20 06/29/20 06/29/20 13:45 15:10 18:00 WBC 8.3 RBC 4.57 Hgb 13.4 Hct 40.7 MCV 89.0 MCH 29.3 MCHC 33.0 RDW 13.4 Plt Count 251 Neut % (Auto) 69.2 Lymph % (Auto) 20.7 L [place] % (Auto) 6.5 Eos % (Auto) 2.5 Baso % (Auto) 1.1 Neut # (Auto) 5700 Lymph # (Auto) 1700 [place] # (Auto) 500 Eos # (Auto) 200 Baso # (Auto) 100 Sodium Potassium Chloride Carbon Dioxide BUN Creatinine Estimated GFR BUN/Creatinine Ratio Glucose Calcium Total Bilirubin AST ALT Alkaline Phosphatase Total Protein Albumin Globulin Albumin/Globulin Ratio SARS-CoV-2 (PCR) Negative Blood Type O Positive Antibody Screen Negative 06/30/20 06/30/20 06/30/20 05:32 05:32 13:55 WBC 6.1 RBC 4.04 Hgb 12.0 13.3 Hct 36.0 41.3 MCV 89.2 MCH 29.7 MCHC 33.3 RDW 13.2 Plt Count 227 Neut % (Auto) 50.4 Lymph % (Auto) 33.5 [place] % (Auto) 10.4 Eos % (Auto) 4.7 H Baso % (Auto) 1.0 Neut # (Auto) 3100 Lymph # (Auto) 2000 [place] # (Auto) 600 Eos # (Auto) 300 Baso # (Auto) 100 Sodium 137 Potassium 4.1 Chloride 106 Carbon Dioxide 31 BUN 15 Creatinine 0.96 Estimated GFR 56.8 L BUN/Creatinine Ratio 15.6 Glucose 91 Calcium 8.8 Total Bilirubin 0.2 AST 19 ALT 14 Alkaline Phosphatase 65 Total Protein 6.0 L Albumin 3.3 L Globulin 2.7 Albumin/Globulin Ratio 1.2 SARS-CoV-2 (PCR) Blood Type Antibody Screen [facility] Medical History Chicken pox Chronic back pain Fractures (~2018) GERD (gastroesophageal reflux disease) Hypertension Hypothyroidism Measles Mumps Scoliosis Shoulder pain (~2019) Vertigo Family History (Updated 06/29/20 @ 16:44 by Marianne Galarza MD) Father Cancer Brother Cancer Sister Cancer Social History household members: spouse Smoking Status: Former smoker alcohol intake: current Discharge Plan Discharge Plan Patient Disposition: Home Provider Discharge Comment: You were admitted to the hospital with bleeding from your esophagus. You were found to have an ulceration in your distal esophagus. Please continue omeprazole 40 mg twice daily for at least 3 months. Please follow up with your PCP when you return home. You may need another endoscopy in the future to see if there is improvement. Discharge orders & Medications Prescriptions: New omeprazole 40 mg capsule,delayed release(DR/EC) 40 mg PO BID 90 Days Qty: 180 RF: 0 Continued [id number] 3.5-10,000-1 mg/mL-unit/mL-% solution 4 drp otic (ear) QID 7 Days Qty: 10 RF: 0 cefuroxime axetil 250 mg tablet 250 mg PO BID 10 Days Qty: 20 RF: 0 COMP estradiol vaginal cream See Rx Instructions .ROUTE .COMPLEX Qty: 30 RF: 3 carvedilol 3.125 mg tablet 3.125 mg PO BID RF: 0 levothyroxine 75 mcg capsule 75 mcg PO DAILY RF: 0 spironolactone 25 mg tablet 25 mg PO BID RF: 0 loratadine 10 mg tablet 10 mg PO DAILY RF: 0 acetaminophen [Tylenol Extra Strength] 500 mg tablet 1,000 mg PO PRN MDD 4000 PRN (Reason: Fever Or Pain) RF: 0 clobetasol 0.05 % ointment 1 applictn TOP DAILY Qty: 1 RF: 2 magnesium salicylate 325 mg Tablet RF: 0 Discontinued omeprazole 20 mg Tablet,Delayed Release (Dr/Ec) 20 mg PO DAILY RF: 0 Follow up/Referrals: Miscellaneous,Doctor, [Primary Care Provider] - Diet/Activity/Treatments Diet: Diet as Tolerated Diet comment: Soft diet Activity: As tolerated Visit Report/Discharge Packet Instructions: DI for Gastroesophageal Reflux Disease (GERD), Omeprazole, DI for Esophageal Ulcer Discharge Data Primary Care Provider: Miscellaneous,Doctor Attending Provider: Marianne Galarza
--- NOTE | 2020-06-30 15:58 | PC.NURSE ---
Report received, care assumed. Patient already has discharge orders at time of initial contact. Orders reviewed, IV dc'd, pt discharged with via private vehicle.
--- NOTE | 2020-06-30 16:32 | CM.DPNOTE ---
Faxed DC summary to [facility] 06/30/20 per [place]. Received confirmation. Claudette Castle CM Asst.
--- NOTE | 2020-07-08 15:44 | PC.NURSE ---
Late entry; LR infusion initiated 06/30 at 11:56, stopped at time of discharge, 15:57.
== END 2020-06-30 15:57 | disposition home or self-care (01) ==
LOC: ED 15:00 → AC 06-30 07:22
PROVIDERS: Internal Medicine; Specialist; Admitting Provider Family Medicine; Emergency Provider Emergency Medicine; Referring Provider Emergency Medicine; Visit Provider Family Medicine
PROC: 0DJ08ZZ Inspection of Upper Intestinal Tract, Via Natural or Artificial Opening Endoscopic (ICD-10-PCS; CPT 43235; principal; 2020-06-30 09:15)
DX: K92.0 Hematemesis (principal); I10 Essential (primary) hypertension; E03.9 Hypothyroidism, unspecified; K21.9 Gastro-esophageal reflux disease without esophagitis; N17.9 Acute kidney failure, unspecified; R91.8 Other nonspecific abnormal finding of lung field; H66.92 Otitis media, unspecified, left ear; Z20.822 Contact with and (suspected) exposure to COVID-19
CPT/HCPCS: 43239; 36415; 71045; 80053; 81003; 85014; 85018; 85025; 85610; 85730; 86850; 86900; 86901; 87635; 96361; 96365; 96366; 96375; 96376; 99282; 99284; C9803; G0378; C9113; J0330; J1100; J2405; J2704; J3010

== ENCOUNTER → 2020-08-04 12:16 | Outpatient (CLI) | payer MEDICARE, BC, SELFPAY ==
[2020-06-29 17:01] VITALS: BMI 26.6
[2020-08-04] MEDS: COVID-19 VACC, Ad26(JANSSEN)/PF 0.5 ML IM (12:26)
== END ==
PROVIDERS: Visit Provider Internal Medicine
DX: Z23 Encounter for immunization (principal)
CPT/HCPCS: 0031A; 91303